=== PATIENT | male | born 1995 | race Caucasian/White ===

== ENCOUNTER 2020-09-12 14:41 | Outpatient (REF) | payer OTHER, SELFPAY ==
[2020-09-12 16:46] LABS: Alanine Aminotransferase 62 U/L (0-40); Albumin Level 4.6 g/dL (3.5-5.0); Alkaline Phosphatase 62 U/L (39-117); Anion Gap 16 (12-20); Aspartate Amino Transferase 29 U/L (5-37); Bilirubin Total 0.8 mg/dL (0.0-1.0); Blood Urea Nitrogen 11 mg/dL (9-16); Calcium 9.6 mg/dL (8.4-10.2); Carbon Dioxide 28 mmol/L (22-29); Chloride 101 mmol/L (96-108); Cholesterol 188 mg/dL; Estimated Glomerular Filt Rate > 60; Glucose Fasting 77 mg/dL (60-99); HDL Cholesterol 43 mg/dL; LDL Cholesterol Calculated 117 mg/dl; Potassium 4.1 mmol/L (3.3-5.1); Sodium 141 mmol/L (135-145); Total Protein 7.3 g/dL (6.5-8.0); Triglycerides 142 mg/dL
[2020-09-12 17:09] LABS: TSH reflex Free T4 1.04 uIU/mL (0.32-4.0)
== END 2020-09-12 14:42 | disposition home or self-care (01) ==
LOC: HO.HMGCLDS 14:41
PROVIDERS: PCP Nurse Practitioner Family; Visit Provider Nurse Practitioner Family
DX: Z00.00 Encounter for general adult medical examination without abnormal findings (principal)
CPT/HCPCS: 36415; 80053; 80061; 84443

== ENCOUNTER 2020-09-26 12:39 | Outpatient (REF) | payer OTHER, SELFPAY ==
[2020-09-27 03:52] LABS: HBS Num1 67.54 mIU/mL (0-7.99); HBc Num1 0.07 S/CO (0.00-0.79); Hepatitis A Antibody IgM 0.21 Index (0-0.79); Hepatitis B Core Antibody Nonreactive (Nonreactive); ~Hepatitis A Antibody IgM Nonreactive (Nonreactive); ~Hepatitis B Surface Antibody REACTIVE (Nonreactive)
[2020-09-27 04:03] LABS: HBsAGNum1 0.24 S/CO (0.00-0.99); Hepatitis B Surface Antigen Negative (Negative); ~HepC Num1 0.07 S/CO (0.00-0.79); ~Hepatitis C Antibody Nonreactive (Nonreactive)
== END 2020-09-26 12:40 | disposition home or self-care (01) ==
LOC: HO.HMGCLDS 12:39
PROVIDERS: PCP Nurse Practitioner Family; Visit Provider Nurse Practitioner Family
DX: R74.8 Abnormal levels of other serum enzymes (principal)
CPT/HCPCS: 36415; 86704; 86706; 86709; 86803; 87340

== ENCOUNTER 2020-10-01 08:22 | Outpatient (REF) | payer OTHER, SELFPAY ==
--- NOTE | ~2020-10-01 | US_ITS ---
EXAMINATION: US ABDOMEN COMPLETE CLINICAL INFORMATION: Abnormal levels of other serum enzymes. COMPARISON: None. TECHNIQUE: Real-time imaging of the abdominal viscera. Technically difficult study secondary to body habitus. FINDINGS: PANCREAS: The head and the body of the pancreas are homogeneous in echotexture. The tail of pancreas is not visualized. ABDOMINAL AORTA: The proximal and mid segments are normal in caliber. INFERIOR VENA CAVA: Visualized portions are normal. LIVER: Liver is diffusely echogenic. The liver is normal in size. The liver contour is normal. No focal hepatic lesion. There is no intrahepatic biliary duct dilatation seen. GALLBLADDER: Normal. The gallbladder is physiologically distended without evidence of stones, sludge, polyps, wall thickening or pericholecystic fluid. COMMON BILE DUCT: Normal in caliber measuring 0.4 cm in diameter. RIGHT KIDNEY: Normal. No hydronephrosis. No renal calculi or focal parenchymal lesions. The kidney measures 12.4 cm in maximum dimension. LEFT KIDNEY: Normal. No hydronephrosis. No renal calculi or focal parenchymal lesions. The kidney measures 12.8 cm in maximum dimension. SPLEEN: Normal. The spleen measures 11.9 cm in maximum dimension. FREE FLUID: None. US/US abdomen complete IMPRESSION: Diffusely echogenic liver without any focal lesions. The rest of the abdominal ultrasound is unremarkable.
== END 2020-10-01 08:23 | disposition home or self-care (01) ==
LOC: HO.US 08:22
PROVIDERS: PCP Nurse Practitioner Family; Visit Provider Nurse Practitioner Family
DX: R74.8 Abnormal levels of other serum enzymes (principal)
CPT/HCPCS: 76700

== ENCOUNTER 2023-12-02 15:36 | Outpatient (AMB) | payer OTHER, SELFPAY ==
--- NOTE | 2023-12-02 15:54 | A.OFFPC_ITS ---
Vital Signs 12/02/23 15:56 Height 5 ft 11 in Weight 313 lb BMI 43.6 BP 122/76 Blood Pressure Location Lt brachial Position Sitting Pulse 71 Pulse Source Pulse Oximeter Pulse Oximetry (%) 98 Oxygen Delivery Method Room Air Intake Visit Reasons: PE Allergies No Known Allergies [No Known Allergies*] Allergy (Verified 12/02/23 17:07) Medication List - Last Reconciled 12/02/23 by LITO Olmstead No Known Home Meds Tobacco use date assessed: 12/02/23 Dental Screening Dental Screen Date: 12/02/23 Did you have a dental visit in the last 12 months?: Yes Did you have a dental problem in the last 6 months where you did not have access to dental care?: No Was dental information given to patient?: Patient has dentist HPI PE HPI Details Pt is here for a PE. Will order labs. [facility] Surgical History History of fracture of leg Family History Father No problems noted. Mother No problems noted. Social History Housing: House Alcohol intake: never Patient Tobacco Use Status: Never used Tobacco e-Cigarette/Vaping Use: Never Used Second Hand Smoke Exposure: No service: No Current occupational status: employed Current occupation: AD[employer] Cognitive needs: No Hearing needs: No Vision needs: No Questionnaire PHQ-9 Over the last 2 weeks, how often have you been bothered by any of the following problems? 38186 - PHQ-9 Billing: Patient declined-do not bill Source: Developed by Drs. Dada Persaud, Jeanette Burnette, Jay Samuels and colleagues, with an educational talia from [employer]. Thrive Questionnaire Date Thrive assessed: 11/26/22 Currently or been in a relationship where the following occur: I choose not to answer this question THRIVE Score: 0 AUDIT C Alcohol Use Questionnaire (AUDIT-C) 1. How often do you have a drink containing alcohol?: Never 3. How often do you have six or more drinks on one occasion?: Never Total Score: 0 Score Reviewed/Action Taken: No LILLIANA-7 AMB Questionnaire LILILANA-7 Date LILLIANA - 7 assessed: 11/26/22 Source: Developed by Drs. Dada Persaud, Jeanette Burnette, Jay Samuels and colleagues, with an educational talia from [employer]. LILLIANA-7 Assessment Billing LILLIANA-7 Assessment Tool: pt declined-do not bill Review of Systems Const Denies chills and Denies fever(s) Eyes Denies blurry vision ENT Denies vertigo, Denies dizziness and Denies sore throat Card Denies chest pain at rest, Denies chest pain with activity, Denies diaphoresis, Denies dyspnea and Denies dyspnea on exertion Resp Denies cough, Denies dyspnea, Denies dyspnea on exertion and Denies wheezing GI Denies abdominal pain, Denies melena, Denies hematochezia, Denies constipation, Denies diarrhea and Denies loose stools Denies hematuria Musc Denies numbness and Denies tingling Skin/Breast Denies lesions Neuro Denies vertigo, Denies dizziness, Denies numbness and Denies tingling Psych Denies anxiety, Denies depression, Denies homicidal ideation, Denies suicidal ideation and Denies other (substance abuse) Aller/Immun Denies wheezing Physical exam (Primary Care) Vital Signs: Last Vital Signs Pulse 71 12/02/23 15:56 BP 122/76 12/02/23 15:56 Pulse Ox 98 12/02/23 15:56 Oxygen Delivery Method Room Air 12/02/23 15:56 BMI result Body Mass Index 43.6 Tobacco/Smoking Status: Tobacco use Status Tobacco use date assessed 12/02/23 12/02/23 15:59 Patient Tobacco Use Status Never used Tobacco 12/02/23 15:59 e-Cigarette/Vaping Use Never Used 12/02/23 15:59 Thrive Assessment: Date of Thrive Assessment Date Thrive assessed 11/26/22 12/02/23 15:59 Currently or been in a relationship where the following occur: I choose not to answer this question Const General: cooperative Nutritional Appearance: obese morbidly obese Orientation/consciousness: patient oriented x3 HENMT Head: Yes normal to inspection, Yes normocephalic and Yes atraumatic Ears: TM's normal bilaterally Eyes General: appearance normal, both eyes and all related structures Alignment and Position: alignment normal and position normal Neck Neck: Yes normal visual inspection and Yes no lymphadenopathy Thyroid: Thyroid normal Resp Effort & Inspection: normal respiratory effort Auscultation: clear to auscultation bilaterally Cardio Rate: regular rate Rhythm: regular rhythm Heart sounds: S1 normal heart sound present, S2 normal heart sound present and no murmurs GI Palpation (GI): Soft to palpation and nontender Auscultation: normal bowel sounds Male General Exam: Yes normal external exam Penis: normal penis Scrotum: scrotum normal, testes descended bilaterally and no inguinal hernias Testes: no testicular mass Skin Rashes: no rashes Neuro General: patient oriented x3, moves all extremities, no focal motor deficits and deep tendon reflexes 2+ bilaterally Romberg Test: Negative Psych Appearance: grossly normal Mental Status: mental status grossly normal Speech and movement: Normal speech and movement present Affect: normal affect Attitude: cooperative Thought process: Normal thought process present Thought content: Normal thought content present Insight: Good insight present (Psych) Judgement: Good judgement present (Psych) Assessment and Plan Assessment & Plan (1) Physical exam: Code(s): Z - Encounter for general adult medical examination without abnormal findings Plan: Labs ordered Plan The patient agreed to the use of a outside medical sales representative for this encounter. Scribed for LITO Stubbs by Marlene Olsen outside medical sales representative, on 12/02/2023 at 16:20 EST. Orders: Orders Complete Blood Count Auto Diff Today Z00.00 - Encounter for general adult medical examination without abnormal findings Comprehensive [place]. Panel Fast Today Z00.00 - Encounter for general adult medical examination without abnormal findings UA CC w/rflx Micro + Cult Today Z00.00 - Encounter for general adult medical ex amination without abnormal findings TSH reflex Free T4 Today Z00.00 - Encounter for general adult medical examination without abnormal findings Lipid Panel Today Z00.00 - Encounter for general adult medical examination without abnormal findings Coding Level of Care Code Est Pt Prev Care 18-39y(65077) Diagnoses Physical exam Z00.00
[2023-12-02 15:56] VITALS: BP 122/76; PULSE 71; O2SAT 98; BMI 43.6
== END 2023-12-02 16:31 | disposition home or self-care (01) ==
PROVIDERS: Visit Provider Nurse Practitioner Family
DX: Z00.00 Encounter for general adult medical examination without abnormal findings (principal)
CPT/HCPCS: 99395

== ENCOUNTER 2023-12-04 09:07 | Outpatient (REF) | payer OTHER, SELFPAY ==
[2023-12-04 11:08] LABS: MANUAL DIFF FLAG NO
[2023-12-04 11:15] LABS: Basophils Absolute Auto 0.1 X10*3/uL (0.0-0.2); Basophils Percent Auto 0.7 % (0-2); Eosinophils Absolute Auto 0.2 X10*3/uL (0.0-0.4); Eosinophils Percent Auto 2.9 % (0-4); Hematocrit 46.7 % (42.0-52.0); Hemoglobin 16.3 g/dl (14.0-18.0); Imm Gran Abs Auto 0.01 X10*3/uL (0.00-0.03); Imm Gran Pct Auto 0.1 % (0.0-0.4); Lymphocytes Absolute Auto 2.4 X10*3/uL (1.2-4.9); Lymphocytes Percent Auto 35.2 % (20-40); Mean Corpuscular HGB Conc 34.9 g/dl (31.0-36.0); Mean Corpuscular Hemoglobin 29.6 pg (27.0-33.0); Mean Corpuscular Volume 84.9 fL (80.0-98.0); Mean Platelet Volume 9.8 fL (9.4-12.4); Monocytes Absolute Auto 0.8 X10*3/uL (0.1-1.2); Monocytes Percent Auto 10.8 % (2-11); Neutrophils Absolute Auto 3.5 x10*3/uL (2.0-8.3); Neutrophils Percent Auto 50.3 % (45-73); Platelet Count 289 X10*3/uL (160-400); Red Cell Distribution Width 12.4 % (11.0-16.0); White Blood Count 6.9 X10*3/uL (4.8-10.8)
[2023-12-04 11:19] LABS: Appearance Urine Clear; Color Urine Yellow; Glucose Urine UA Negative (Negative); Leukocyte Esterase Urine Negative (Negative); Nitrite Urine Negative (Negative); PH 7.5 (5.0-9.0); Specific Gravity - Urine 1.015 (1.005-1.025); Urine Blood Negative (Negative); Urine Ketones Negative (Negative); Urine Protein Negative (Neg-Trace)
[2023-12-04 11:59] LABS: Alanine Aminotransferase 52 U/L (0-40); Albumin Level 4.4 g/dL (3.5-5.0); Alkaline Phosphatase 57 U/L (39-117); Anion Gap 15 (12-20); Aspartate Amino Transferase 29 U/L (5-37); Bilirubin Total 0.8 mg/dL (0.0-1.0); Blood Urea Nitrogen 14 mg/dL (9-16); Calcium 10.2 mg/dL (8.4-10.2); Carbon Dioxide 25 mmol/L (22-29); Chloride 104 mmol/L (96-108); Cholesterol 200 mg/dL (<200); Estimated Glomerular Filt Rate > 60; Glucose Fasting 103 mg/dL (60-99); HDL Cholesterol 40 mg/dL (>40); LDL Cholesterol Calculated 131 mg/dL (<100); Potassium 3.9 mmol/L (3.3-5.1); Sodium 140 mmol/L (135-145); Total Protein 7.3 g/dL (6.5-8.0); Triglycerides 146 mg/dL (<150)
[2023-12-04 12:19] LABS: TSH reflex Free T4 0.77 uIU/mL (0.32-4.0)
== END 2023-12-04 09:08 | disposition home or self-care (01) ==
LOC: HO.HMGCLDS 09:07
PROVIDERS: PCP Nurse Practitioner Family; Visit Provider Nurse Practitioner Family
DX: Z00.00 Encounter for general adult medical examination without abnormal findings (principal)
CPT/HCPCS: 36415; 80053; 80061; 81003; 84443; 85025

== ENCOUNTER 2024-12-20 15:20 | Outpatient (AMB) | payer OTHER, SELFPAY ==
[2024-12-20 15:23] VITALS: BP 126/82; PULSE 71; O2SAT 96; BMI 44.6
--- NOTE | 2024-12-20 15:23 | A.OFFPC_ITS ---
Vital Signs 12/20/24 15:23 Height 5 ft 11 in Weight 320 lb BMI 44.6 BP 126/82 Blood Pressure Location Rt brachial Position Sitting Pulse 71 Pulse Source Pulse Oximeter Pulse Oximetry (%) 96 Oxygen Delivery Method Room Air Intake Visit Reasons: PE Integration Developer Required: No Allergies No Known Allergies [No Known Allergies*] Allergy (Verified 12/20/24 15:55) Medication List - Last Reconciled 12/20/24 by LITO Olmstead No Known Home Meds Tobacco use date assessed: 12/20/24 Dental Screening Dental Screen Date: 12/20/24 Did you have a dental visit in the last 12 months?: Yes Did you have a dental problem in the last 6 months where you did not have access to dental care?: No Was dental information given to patient?: Patient has dentist HPI PE HPI Details History of Present Illness The patient is a 29-year-old male presenting for a physical examination. He reports a history of ongoing right Achilles tendinitis, previously treated with injections, which had minimal efficacy. The tendinitis affects his right Achilles from mid to distal region and is worsened by prolonged daily boot wear for work. The patient denies symptoms such as chest pain, shortness of breath, or gastrointestinal and urinary issues. Health Maintenance - Encourage labs to be completed in the near future for preventive health purposes. Social History - The patient wears boots daily due to w ork, which may contribute to his Achilles tendinitis. 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 - His weight status was noted as obese. Review of Systems - Musculoskeletal: Reports ongoing Achil les tendinitis. - Cardiovascular: Denies chest pain. - Respiratory: Denies shortness of breat h. - Gastrointestinal: Denies abdominal krystyna n, blood in stool, constipation, diarrhea. - Genitourinary: Denies urinary issues. - Psychiatric: Denies suicidal ideation, homicidal ideation. Physical Exam General: Cooperative, healthy appearing, comfortable, no acute distress, well developed, and obese Orientation: Patient oriented x3 Limitations: No limitations Head: Normal to inspection Ears: Hearing grossly normal bilaterally Nose: Normal external nose present Face and sinus: Normal facial exam Eyes: Appearance normal, both eyes and all related structures Neck: Normal visual inspection and Yes full ROM Respiratory: Normal respiratory effort and able to speak in complete sentences. Clear to auscultation bilaterally Cardiovascular: Regular rate and rhythm. Normal S1 and S2 GI: Normal to inspection. Soft to palpation and nontender Skin: No rashes or lesions noted Neuro: Patient oriented x3 Extremities: Normal to inspection, tenderness with dorsiflexion and palpation of bilat mid/distal Achilles regions. Results Plan The patient has been referred to physical therapy for the management of his persistent right Achilles tendinitis, with attention to activity modification and therapeutic exercises. His obesity and forthcoming fatherhood call for a timely health evaluation through lab tests. Discussion Notes During the visit, I discussed with the patient the referral to physical therapy to address his Achilles tendinitis, emphasizing adherence to recommended exercises and activity modifications. I explained the limited success of previous injections and the benefits of physical therapy. We also talked about his upcoming journey into fatherhood, encouraging him to complete pending lab work for overall health monitoring. Patient Instructions - Follow up with physical therapy as rec ommended - Wear appropriate footwear and avoid pr olonged boot use. - Complete lab work soon. - Monitor any changes in symptoms and re port if they worsen. [facility] Surgical History History of fracture of leg Family History Father No problems noted. Mother No problems noted. Social History Housing: House Alcohol intake: never Patient Tobacco Use Status: Never used Tobacco e-Cigarette/Vaping Use: Never Used Second Hand Smoke Exposure: No service: No Current occupational status: employed Current occupation: ADT Cognitive needs: No Hearing needs: No Vision needs: No Questionnaire PHQ-9 Over the last 2 weeks, how often have you been bothered by any of the following problems? 1. Little interest or pleasure in doing things: not at all 2. Feeling down, depressed, or hopeless: not at all 3. Trouble falling or staying asleep, or sleeping too much: not at all 4. Feeling tired or having little energy: not at all 5. Poor appetite or overeating: not at all 6. Feeling bad about yourself - or that you are a failure or have let yourself or your family down: not at all 7. Trouble concentrating on things, such as reading the newspaper or watching television: not at all 8. Moving or speaking so slowly that other people could have noticed. Or the opposite - being so fidgety or restless that you have been moving around a lot more than usual: not at all 9. Thoughts that you would be better off or of hurting yourself in some way: not at all Total score: 0 Depression Screening Interpretation: Negative Depression Screening Done: Yes 91569 - PHQ-9 Billing: Yes Source: Developed by Drs. Dada Persaud, Jeanette Burnette, Jay Samuels and colleagues, with an educational talia from [employer]. Thrive Questionnaire Date Thrive assessed: 12/20/24 I am a: Patient What is your living situation today?: I have a steady place to live Within the past 12 months, did the food you bought not last and you didn't have the money to get more?: Never true Within the past 12 months, did you worry whether your food would run out before you got money to buy more?: Never true Do you have trouble paying for medicines?: No Do you have trouble getting transportation to medical appointments?: No Do you have trouble paying your heating and electricity bill?: No Do you have trouble taking care of your child, family member or friend?: No Do you have trouble with day-to-day activities such as bathing, preparing meals, shopping, managing finances, etc.?: No Are you currently unemployed and looking for a job?: No Are you interested in more education?: No Please select the resources that you would like help with: None Currently or been in a relationship where the following occur: No concerns reported THRIVE Score: 0 AUDIT C Alcohol Use Questionnaire (AUDIT-C) 1. How often do you have a drink containing alcohol?: Monthly or less 2. How many drinks containing alcohol do you have on a typical day when you are drinking?: 3 or 4 3. How often do you have six or more drinks on one occasion?: Never Total Score: 2 Score Reviewed/Action Taken: Yes LILLIANA-7 AMB Questionnaire LILLIANA-7 Date LILLIANA - 7 assessed: 12/20/24 Feeling nervous, anxious, or on edge: 1 = Several days Not being able to stop or control worryin = Several days Worrying too much about different things: 1 = Several days Trouble relaxin = Not at all Being so restless that it is hard to sit still: 0 = Not at all Becoming easily annoyed or irritable: 0 = Not at all Feeling afraid as if something awful might happen: 0 = Not at all Total LILLIANA-7 score (0-4 normal; 5-9 mild; 10-14 moderate; 15-21 severe): 3 Source: Developed by Drs. Dada Persaud, Jeanette Burnette, Jay Samuels and colleagues, with an educational talia from [employer]. LILLIANA-7 Assessment Billing LILLIANA-7 Assessment Tool: LILLIANA-7 Assessment 89813 Physical exam (Primary Care) Vital Signs: Last Vital Signs Pulse 71 12/20/24 15:23 BP 126/82 12/20/24 15:23 Pulse Ox 96 12/20/24 15:23 Oxygen Delivery Method Room Air 12/20/24 15:23 BMI result Body Mass Index 44.6 Tobacco/Smoking Status: Tobacco use Status Tobacco use date assessed 12/20/24 12/20/24 15:24 Patient Tobacco Use Status Never used Tobacco 12/20/24 15:24 e-Cigarette/Vaping Use Never Used 12/20/24 15:24 PHQ-9: PHQ-9 Score PHQ-9: Total score 0 12/20/24 15:27 Depression Screening Interpretation: Negative Thrive Assessment: Date of Thrive Assessment Date Thrive assessed 12/20/24 12/20/24 15:24 Currently or been in a relationship where the following occur: No concerns reported Coding Level of Care Code Est Pt Prev Care 18-39y(71701) Diagnoses Physical exam Z00.00 Achilles tendonitis M76.60 Additional Codes LILLIANA-7 Assessment Billing - LILLIANA-7 Assessment Tool: LILLIANA-7 Assessment 45031 ([id number]) PHQ-9 - 27406 - PHQ-9 Billing: Yes ([id number]) Assessment & Plan Assessment & Plan (1) Physical exam: Code(s): Z00.00 - Encounter for general adult medical examination without abnormal findings Category: Medical (2) Achilles tendonitis: Comment: bilat Code(s): M76.60 - Achilles tendinitis, unspecified leg Category: Medical Plan . Orders: Orders Complete Blood Count Auto Diff Today Z00.00 - Encounter for general adult medical examination without abnormal findings TSH reflex Free T4 Today Z00.00 - Encounter for general adult medical examination without abnormal findings UA CC w/rflx Micro + Cult Today Z00.00 - Encounter for general adult medical examination without abnormal findings Lipid Panel Today Z00.00 - Encounter for general adult medical examination without abnormal findings PT Evaluation and Treatment Today M76.60 - Achilles tendinitis, unspecified leg Comprehensive [place]. Panel Fast Today Z00.00 - Encounter for general adult medical examination without abnormal findings
== END 2024-12-20 15:58 | disposition home or self-care (01) ==
LOC: HO.HMCC 15:21
PROVIDERS: PCP Nurse Practitioner Family; Visit Provider Nurse Practitioner Family
DX: Z00.00 Encounter for general adult medical examination without abnormal findings (principal); M76.60 Achilles tendinitis, unspecified leg

== ENCOUNTER → 2024-12-20 15:20 | Outpatient (BNVA) | payer OTHER, SELFPAY | PROVIDERS: PCP Nurse Practitioner Family; Visit Provider Nurse Practitioner Family | DX: Z00.00 Encounter for general adult medical examination without abnormal findings (principal); M76.61 Achilles tendinitis, right leg | CPT/HCPCS: 96127 ==

== ENCOUNTER 2024-12-23 07:55 | Outpatient (REF) | payer OTHER, SELFPAY ==
[2024-12-23 11:05] LABS: MANUAL DIFF FLAG NO
[2024-12-23 11:10] LABS: Basophils Absolute Auto 0.1 X10*3/uL (0.0-0.2); Basophils Percent Auto 0.8 % (0-2); Eosinophils Absolute Auto 0.1 X10*3/uL (0.0-0.4); Eosinophils Percent Auto 2.3 % (0-4); Hematocrit 46.8 % (42.0-52.0); Hemoglobin 15.9 g/dl (14.0-18.0); Imm Gran Abs Auto 0.01 X10*3/uL (0.00-0.03); Imm Gran Pct Auto 0.2 % (0.0-0.4); Lymphocytes Absolute Auto 2.2 X10*3/uL (1.2-4.9); Lymphocytes Percent Auto 36.8 % (20-40); Mean Corpuscular Hemoglobin 28.7 pg (27.0-33.0); Mean Corpuscular Volume 84.5 fL (80.0-98.0); Monocytes Absolute Auto 0.7 X10*3/uL (0.1-1.2); Monocytes Percent Auto 11.7 % (2-11); Neutrophils Absolute Auto 2.9 x10*3/uL (2.0-8.3); Neutrophils Percent Auto 48.2 % (45-73); Platelet Count 273 X10*3/uL (160-400); Red Blood Count 5.54 X10*6/uL (4.60-5.80); Red Cell Distribution Width 12.3 % (11.0-16.0); White Blood Count 6.1 X10*3/uL (4.8-10.8)
[2024-12-23 11:21] LABS: Appearance Urine Clear; Color Urine Yellow; Glucose Urine UA Negative (Negative); Leukocyte Esterase Urine Negative (Negative); Nitrite Urine Negative (Negative); PH 6.5 (5.0-9.0); Specific Gravity - Urine 1.025 (1.005-1.025); Urine Blood Negative (Negative); Urine Ketones Negative (Negative); Urine Protein Negative (Neg-Trace)
[2024-12-23 11:25] LABS: Alanine Aminotransferase 60 U/L (0-40); Albumin Level 4.5 g/dL (3.5-5.0); Alkaline Phosphatase 57 U/L (39-117); Anion Gap 13 (12-20); Aspartate Amino Transferase 34 U/L (5-37); Bilirubin Total 0.8 mg/dL (0.0-1.0); Blood Urea Nitrogen 16 mg/dL (9-16); Calcium 9.4 mg/dL (8.4-10.2); Carbon Dioxide 26 mmol/L (22-29); Chloride 106 mmol/L (96-108); Cholesterol 182 mg/dL (<200); Estimated Glomerular Filt Rate > 60; Glucose Fasting 100 mg/dL (60-99); HDL Cholesterol 37 mg/dL (>40); LDL Cholesterol Calculated 121 mg/dL (<100); Potassium 3.8 mmol/L (3.3-5.1); Sodium 141 mmol/L (135-145); Total Protein 7.2 g/dL (6.5-8.0); Triglycerides 124 mg/dL (<150)
== END 2024-12-23 07:56 | disposition home or self-care (01) ==
LOC: HO.HMGCLDS 07:55
PROVIDERS: PCP Nurse Practitioner Family; Visit Provider Nurse Practitioner Family
DX: Z00.00 Encounter for general adult medical examination without abnormal findings (principal); Z13.6 Encounter for screening for cardiovascular disorders
CPT/HCPCS: 36415; 80053; 80061; 81003; 84443; 85025

== ENCOUNTER 2025-03-26 10:00 | Outpatient (RCR) | payer OTHER, SELFPAY ==
--- NOTE | 2025-02-15 14:50 | MHC.PT.EP ---
[facility] [place] Office [place] Office [place] Office [address] Sia Mascorro [address] [phone] F: [phone] F: [phone] F: [phone] F: [phone] Physical Therapy Plan of Care Date of Evaluation: 02/15/25 Date of Surgery: n/a Diagnosis: achilles tendonitis B Assessment: Patient is a 29 year old male presenting to PT with complaints of pain in his B achilles. Pt reports onset of pain began about 2 years ago due to insidious onset. He presents today with impairments in pain, soft tissue trigger points, hip strength. 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 Pt expresses senior living goal of reducing pain, and is motivated to work towards this in PT. Clinical presentation today is most consistent with signs and sx associated with B achilles pain and pt will benefit from skilled PT 2 week x 4 weeks to address the following problems and impairments noted upon evaluation: pain, soft tissue trigger points, hip strength. These problems limit the patient with the following functional activities: ADLs, work, ambulating, stair negotiation. The prescribed treatment plan of care is medically necessary. Co-morbidities of none were identified and taken into considerations of plan of care. Pt was educated on HEP, role of PT, prognosis, POC. Frequency and Duration: The patient will be seen 2 x week x 4 weeks Short Term Goals: Pt will demonstrate less tenderness to achilles and gastroc B in 2 weeks. Pt will demonstrate improved hip MMT strength by 1/3 grade in 2 weeks. Claims Attorney Goals: Pt will demonstrate improved LEFI score by 9 points in 4 weeks for improved functional mobility. Pt will demonstrate ability to work a full day with min to no pain in 4 weeks for return to PLOF. Pt will demonstrate ability to negotiate stairs with min to no pain in 4 weeks for improved access to his home. Treatment Plan: Modalities to reduce pain, spasms and effusion. Manual therapy to restore motion and function. Therapeutic exercise to improve strength and flexibility. Neuromuscular re-education for posture and balance. Therapeutic activities to return to functional activities of daily living. Electronically signed by: Tomeka Suarez, PT, DPT, ATC Please sign and return to therapist. Thank you for your referral.
--- NOTE | 2025-04-26 07:23 | MHC.PT.DC ---
[facility] [place] Office [place] Office [place] Office [address] Sia Mascorro [address] [phone] F: [phone] F: [phone] F: [phone] F: [phone] Physical Therapy Discharge Report Diagnosis: achilles tendonitis B Date of Surgery: n/a Date of Evaluation: 02/15/25 Date of Discharge: 04/26/25 Treatments to Date: 7 Cancellations to Date: 2 No Shows to Date: 1 Discharge Status: Discharge Summary: Pt no showed his final appointment and has not returned to skilled PT in 30 days. Pt to be d/c per this POC. Electronically signed by: Tomeka Suarez, PT, DPT, ATC Please sign and return to therapist. Thank you for your referral.
== END 2025-04-26 07:23 | disposition home or self-care (01) ==
LOC: HO.PTCHIC 10:00
PROVIDERS: PCP Nurse Practitioner Family; Visit Provider Nurse Practitioner Family
DX: M76.61 Achilles tendinitis, right leg (principal); M76.62 Achilles tendinitis, left leg
CPT/HCPCS: 97110; 97112; 97140; 97161